=== PATIENT | male | born 1990 | race African-American/Black ===

== ENCOUNTER 2020-07-06 23:54 | Emergency (ER) | payer SELFPAY ==
[~2020-07-06] VITALS: Ht 185.4 cm; Wt 90.7 kg
[2020-07-07] MEDS ORDERED: NEOMYCIN/POLYMYX/BACITR OINT 0.9 GM PKT ONE (00:14)
[2020-07-07] MEDS ORDERED: TETANUS/DIPHTHERIA TOX ADULT 0.5 ML SYR ONE (00:14)
[2020-07-07] MEDS ORDERED: TETANUS/DIPHTHERIA TOX ADULT 0.5 ML SYR IM ONE (00:15)
[2020-07-07] MEDS ORDERED: BACITRACIN ZINC 0.9GM TP ONE (00:15)
== END 2020-07-07 00:25 | disposition home or self-care (01) ==
LOC: FSED 07-07 00:06
DX: S61.411A Laceration without foreign body of right hand, initial encounter (principal); W26.9XXA Contact with unspecified sharp object(s), initial encounter; Y92.008 Other place in unspecified non-institutional (private) residence as the place of occurrence of the external cause; F17.210 Nicotine dependence, cigarettes, uncomplicated
CPT/HCPCS: 90471; 90714; 99283